=== PATIENT | female | born 1985 | race Caucasian/White ===

== ENCOUNTER → 2020-05-26 09:13 | Outpatient (CLI) | payer OTHER, SELFPAY ==
--- NOTE | 2020-05-26 09:23 | US_ITS ---
STUDY: RENAL ULTRASOUND - COMPLETE REASON FOR EXAM: Female, 34 years old. UTI . Recurrent UTIs. TECHNIQUE: Ultrasound evaluation of the kidneys was performed with real-time and static gates-scale imaging. COMPARISON: None. FINDINGS: RIGHT KIDNEY: Normal location of the right kidney, which is normal in size. The right kidney measures 13 cm x 6.1 cm x 5 cm. There is a normal cortex of the right kidney. The renal cortex measures 1.5 cm. There is no right renal mass or cyst. There are no right renal calculi. There is no right hydronephrosis. DISTAL RIGHT URETER: There is non-visualization of the distal right ureter. There is no demonstrated right ureterovesical junction calculus. There is no demonstrated right ureteral jet. LEFT KIDNEY: Normal location of the left kidney, which is normal in size. The left kidney measures 12.9 cm x 7 cm x 5.1 cm. There is a normal cortex of the left kidney. The renal cortex measures 1.4 cm. There is no left renal mass or cyst. There are no left renal calculi. There is no left hydronephrosis. DISTAL LEFT URETER: There is non-visualization of the distal left ureter. There is no demonstrated left ureterovesical junction calculus. There is no demonstrated left ureteral jet. BLADDER: The bladder is not adequately filled for adequate assessment. US/Kidney and Bladder IMPRESSION: Normal ultrasound of the kidneys. Electronically Signed: Maik San MD at 10:00 EDT , Service support ,
== END ==
PROVIDERS: PCP Family Medicine; Referring Provider Urology; Visit Provider Urology
DX: N39.0 Urinary tract infection, site not specified (principal)
CPT/HCPCS: 76770